=== PATIENT | female | born 2000 | race Two or more races ===

== ENCOUNTER 2025-04-21 07:24 | Inpatient (IN) ==
[2025-04-21] MEDS ORDERED: OXYTOCIN 30 UNITS/NSS 30 UNITS/500 ML BAG IV PRN ×2 (08:47→22:12)
[2025-04-21] MEDS ORDERED: LIDOCAINE 1% LOCAL 20 ML VIAL INFIL PRN (08:47)
[2025-04-21] MEDS ORDERED: CALCIUM CARBONATE 500 MG CHEWABLE TAB PO PRN (08:47)
--- NOTE | 2025-04-21 08:55 | History & Physical Report ---
Date of Service April 21, 2025 Assessment & Plan (1) Class 3 obesity: Plan: IOL with folye/cytotec for cervical ripening (2) with 39 completed weeks gestation: Admission and Anticipated Discharge Date Admission Date: April 21, 2025 History of Present Illness Chief Complaint: induction of labor Primary Care Provider: Vannessa Marrero MD 24 F [id number] at 39 weeks admitted for IOL for class 3 obesity Allergies Allergy/AdvReac Type Severity Reaction Status Date / Time latex AdvReac Intermediate Rash Verified 04/21/25 07:56 Patient History Medical History Anemia Had iron infusion 03/2025 Obesity Bipolar 1 disorder Hepatitis C antibody positive With last . 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 Counselor and Psychiatrist in [place] in May 2025. No suicidal throughts. Surgical History No history of previous surgery Family History Mother Lee syndrome Depression Alcoholic Social History Smoking Status: Former smoker Tobacco Type: E-cigarettes / Vaping Second Hand Exposure: Yes (fiance smokes outside); Hx Alcohol Use: No Hx Substance Use: No Preferred Language: Maltese Communication Ability: Effective Electro Winning Operator Required: No Beliefs That Will Affect Care: None marital status: Single marital status details: Justus Aguilar Current Living Situation: Significant Other Current Living Situation Comment: Lives with Justus Rhoades with daughter and son current occupational status: unemployed current occupation: Homemaker Other Information That Helps Us Care for You: No Feels Safe at Home: Yes Diet: regular Assistive Devices: None and Glasses OB History x2 DRY MAN History neg Review of Systems All systems reviewed & are unremarkable except as noted in HPI & below Physical Exam Constitutional: WD/WN, vitals as above Eyes: PERRL, conjunctivae normal, anicteric sclerae Respiratory: normal respiratory effort Cardiovascular: Rate/Rhythm: regular rate Gastrointestinal (Abdomen): Inspection/Auscultation: abdomen normal to inspection Musculoskeletal: Extremities: extremities normal to inspection Skin: no rashes, warm and dry Neurologic: patellar DTR's 2+ bilat, sensation intact Psychiatric: A+Ox3, euthymic affect Genitourinary: no vaginal lesions, no adnexal mass Manual OB Exam: + cervical dilation (May placed transcervically with 40 ml. saline inserted into balloon) 1 cm, + cervical effacement 50% and + station high OB Exam Monitor Tracing: + external FHT monitor used, + external uterine monitor used, + category I and + normal FHT variability cervix posterior/firm Results & Data Vital Signs (Past 12 Hours) Vital Signs Temp Pulse Resp BP 04/21/25 07:56 36.8 C 92 H 20 119/86 04/21/25 07:45 92 H 119/86 Code Status & VTE Plan VTE Prophylaxis Plan VTE Prophylaxis will be ordered: No Monitoring External Monitor Cat 1
[2025-04-21 09:15] LABS: Hematocrit (blood only) 36.2 % (37.0-47.0); Hemoglobin 12.0 g/dL (12.0-16.0); Mean Corpuscular Hemoglobin 27.6 pg (25.0-34.0); Mean Corpuscular Volume 83.2 fL (80.0-100.0); Platelet Count 271 K/uL (130-400); RDW Standard Deviation 55.1 fL (36.4-46.3); Red Blood Count 4.35 M/uL (4.20-5.40); White Blood Count 9.80 K/ul (4.8-10.8)
[2025-04-21] MEDS: miSOPROStol 50 MCG TAB PO STA (09:29)
[2025-04-21] MEDS: BUTORPHANOL TARTRATE 1 MG/ML VIAL IV PRN (10:41)
[2025-04-21] MEDS: LACTATED RINGER'S 1,000 ML IV PRN (10:41)
--- NOTE | 2025-04-21 13:01 | Labor Progress Brief Note ---
Date of Service April 21, 2025 Assessment & Plan Admission and Anticipated Discharge Date Admission Date: April 21, 2025 Physical Exam Genitourinary: Manual OB Exam: + cervical dilation 3 cm, + cervical effacement 60% and + station high OB Exam Monitor Tracing: + external FHT monitor used, + external uterine monitor used, + category I and + normal FHT variability Results & Data Vital Signs (Past 12 Hours) Vital Signs Temp Pulse Resp BP 04/21/25 10:46 36.8 C 93 H 20 124/71 04/21/25 07:56 36.8 C 92 H 20 119/86 04/21/25 07:45 92 H 119/86
[2025-04-21] MEDS: OXYTOCIN 30 UNITS/NSS 30 UNITS/500 ML BAG IV PRN (13:44)
[2025-04-21] MEDS ORDERED: ONDANSETRON INJ 2 MG/ML 2 ML VIAL IV PRN (15:23)
[2025-04-21] MEDS ORDERED: BUPIVACAINE 0.25% PF 30 ML VIAL EPI PRN (15:23)
[2025-04-21] MEDS ORDERED: PROMETHAZINE 6.25 MG/50.25 ML BAG IV PRN (15:23)
[2025-04-21] MEDS ORDERED: SODIUM CHLORIDE 0.9% PF INJ 10 ML VIAL EPI PRN (15:23)
[2025-04-21] MEDS ORDERED: NALBUPHINE HCL INJ 10 MG/ML AMP IV PRN (15:23)
[2025-04-21] MEDS ORDERED: ROPIVACAINE 0.5% PF 5 MG/ML 20 ML VIAL EPI PRN (15:23)
[2025-04-21] MEDS ORDERED: NALOXONE HCL 1 MG in SODIUM CHLORIDE 0.9% 1,000 ML IV PRN (15:23)
[2025-04-21] MEDS ORDERED: NALOXONE HCL 0.4 MG/1 ML VIAL/CARP IV PRN (15:23)
[2025-04-21] MEDS ORDERED: LIDOCAINE 2% MPF LOCAL 5 ML VIAL EPI PRN (15:23)
--- NOTE | 2025-04-21 15:23 | Anesthesiology Consultation ---
Date of Service April 21, 2025 Assessment & Plan ASA ASA2 Proposed Anesthesia Anesthesia Type: Labor Epidural Risk / Benefits Reviewed With: PT / POA / Parent / Guardian, Accepts Plan and Informed Consent Obtained History Height/Weight Height: 5 ft Weight: 106.141 kg Allergies Allergy/AdvReac Type Severity Reaction Status Date / Time latex AdvReac Intermediate Rash Verified 04/21/25 07:56 Medications Active Medications Generic Name Dose Route Start Last Admin Trade Name Freq PRN Reason Stop Dose Admin Butorphanol Tartrate 1 mg 04/21/25 09:33 04/21/25 10:41 Butorphanol Tartrate 1 Mg/Ml Vial IV 05/21/25 09:32 1 mg Q2HWA PRN Administration Pain Lactated Ringer's 1,000 mls @ 125 mls/hr 04/21/25 08:47 04/21/25 10:41 Lr IV 04/23/25 08:46 125 mls/hr .Q8H PRN Administration L&D Protocol Protocol Oxytocin 30 units in 500 mls @ 3 mls/hr 04/21/25 11:33 04/21/25 14:59 Pitocin 30 Units/Nss IV 04/23/25 11:32 0.18 units/hr .Q24H PRN 3 mls/hr Labor Induction/Augmentation Titration Protocol 0.18 UNITS/HR Past Medical History Medical History Anemia Had iron infusion 03/2025 Obesity Bipolar 1 disorder Hepatitis C antibody positive With last . 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 Counselor and Psychiatrist in [place] in May 2025. No suicidal throughts. Exercise / Class Metabolic Activity II 4-5 Yardwork/Stairs/Walk up hill Past Family History Family History Mother Lee syndrome Depression Alcoholic Past Surgical History Surgical History No history of previous surgery Past Anesthesia History No Hx of Anesthesia Complications and No Family Hx of Anesthesia Complications History of PONV No Hx of PONV and No Hx of Motion Sickness Social History Smoking Status: Former smoker Hx Alcohol Use: No Hx Substance Use: No substance use type: does not use Review of Systems denies fever/cough/ colds/ chest pain/ SOB/ JANINE denies JANINE Physical Exam Vital Signs Last Vital Signs Temp 36.9 C 04/21/25 15:00 Pulse 88 04/21/25 15:00 Resp 18 04/21/25 15:00 BP 104/72 04/21/25 15:00 ENMT Mouth: no TMJ abnormality and no dentition abnormality Thyromental Distance: > or= 3.5 Finger Breadths Mallampati Class: II Neck neck extension not limited Respiratory normal respiratory effort; no respiratory distress Auscultation: lungs clear to auscultation bilaterally Cardiovascular Rate/Rhythm: regular rate and regular rhythm Neurologic moves all extremities Psychiatric Orientation: alert and oriented x 3 Testing Laboratory Results 04/21/25 08:58 Blood Type O Negative 04/21/25 08:58 Antibody Screen NEGATIVE 04/21/25 08:58
[2025-04-21] MEDS: fentANYL 2 MCG/ML BUPIVacaine 0.125%-NSS 100ML BAG ONE (16:03)
[2025-04-21] MEDS: LIDOCAINE 2%/EPINEPHRINE 1:200,000 20 ML PF ONE (16:07)
[2025-04-21] MEDS: BUPIVACAINE 0.25% PF 30 ML VIAL ONE (16:08)
--- NOTE | 2025-04-21 16:28 | Labor Progress Brief Note ---
Date of Service April 21, 2025 Assessment & Plan Admission and Anticipated Discharge Date Admission Date: April 21, 2025 Physical Exam Genitourinary: Manual OB Exam: + cervical dilation 3 cm and 4 cm, + cervical effacement 70%, + station -2 and + amniotic fluid clear OB Exam Monitor Tracing: + external FHT monitor used, + external uterine monitor used, + category I and + normal FHT variability AROM with Amni-hook clear fluid Results & Data Vital Signs (Past 12 Hours) Vital Signs Temp Pulse Resp BP Pulse Ox 04/21/25 16:24 99 H 98 04/21/25 16:20 90 18 115/61 04/21/25 16:19 98 H 97 04/21/25 16:18 93 H 113/64 04/21/25 16:16 96 H 113/64 04/21/25 16:15 20 04/21/25 16:15 20 04/21/25 16:14 99 H 112/62 96 04/21/25 16:12 84 112/63 04/21/25 16:10 20 04/21/25 16:10 84 20 112/57 L 04/21/25 16:09 88 97 04/21/25 16:08 102 H 119/64 04/21/25 16:06 84 20 123/75 04/21/25 16:04 104 H 96 04/21/25 16:03 92 H 133/80 04/21/25 15:59 95 H 96 04/21/25 15:54 91 H 99 04/21/25 15:00 36.9 C 88 18 104/72 04/21/25 14:53 88 104/72 04/21/25 14:22 89 119/73 04/21/25 13:34 88 18 117/70 04/21/25 10:46 36.8 C 93 H 20 124/71 04/21/25 07:56 36.8 C 92 H 20 119/86 04/21/25 07:45 92 H 119/86
[2025-04-21] MEDS: diphenhydrAMINE 50 MG/ML VIAL IV PRN (18:32)
[2025-04-21] MEDS: SODIUM CHLORIDE 0.9% PF INJ 10 ML VIAL EPI STA (18:35)
[2025-04-21] MEDS: SODIUM CHLORIDE 0.9% PF INJ 10 ML VIAL ONE (18:35)
[2025-04-21] MEDS: BUPIVACAINE 0.25% PF 30 ML VIAL EPI STA (18:35)
[2025-04-21] MEDS: LIDOCAINE 2%/EPINEPHRINE 1:200,000 20 ML PF EPI STA (18:35)
[2025-04-21] MEDS: ACETAMINOPHEN 325 MG TAB PO PRN (22:29)
[2025-04-21] MEDS: fentANYL 2 MCG/ML BUPIVacaine 0.125%-NSS 100ML BAG EPI PRN (23:03)
[2025-04-21] MEDS ORDERED: NURSING L&D Epidural Breakthrough Pain Update ONE (23:43)
--- NOTE | 2025-04-22 00:27 | Delivery Summary ---
Vaginal Delivery Summary Date of Service April 22, 2025 Vaginal Delivery Summary live female NAKUL over intact perineum with delayed cord clamping. Apgars 8/0 weight pemding. Cord blood obtained followed by spontaneous delivery of intact placenta. No tears. QBL 50 ml. Final sponge and instrument count are correct. Mom and baby stable.
[2025-04-22] MEDS ORDERED: HYDROCORTISONE ACETATE 25 MG SUPP PR PRN (01:28)
[2025-04-22] MEDS ORDERED: OXYTOCIN 30 UNITS/NSS 30 UNITS/500 ML BAG IV PRN (01:28)
[2025-04-22] MEDS ORDERED: BENZOCAINE 20% SPRY 85 APPLN/85 GM CAN EXT PRN (01:28)
[2025-04-22] MEDS: DIPHTHER/TETAN/PERTUS Vaccine (Tdap, Adol/Adult) 0.5mL IM ONE (03:18)
--- NOTE | 2025-04-22 07:47 | Anesthesia Procedure Note ---
Date of Service April 22, 2025 Anesthesia Post Epidural Note Vital Signs Vital Signs: Temp Pulse Resp BP Pulse Ox O2 Del Method 36.8 C 86 18 111/66 97 Room Air 04/22/25 03:00 04/22/25 03:00 04/22/25 03:00 04/22/25 03:00 04/22/25 03:00 04/22/25 03:00 Pain Intensity Perineal: Pain Intensity: 2 Notes Mental Status: alert / awake / arousable Nausea / Vomiting: adequately controlled Pain: adequately controlled Airway Patency, RR, SpO2: stable & adequate BP & HR: stable & adequate Hydration State: stable & adequate Neuraxial Anesthesia: was administered and sensory block is resolving Anesthetic Complications: no major complications apparent and Pt Satisfied with anesthetic care Epidural: Removed without complications and With tip intact
[2025-04-22] MEDS: PRENATAL VITAMIN 1 TAB PO SCH (08:06)
[2025-04-22] MEDS: FERROUS SULFATE 325 MG TAB PO SCH (08:06)
[2025-04-22] MEDS: ACETAMINOPHEN 325 MG TAB PO PRN (08:06)
[2025-04-22] MEDS: DOCUSATE SODIUM 100 MG CAP PO SCH (08:06)
--- NOTE | 2025-04-22 08:53 | Obstetrical Progress Note ---
Date of Service April 22, 2025 Assessment & Plan Admission and Anticipated Discharge Date Admission Date: April 21, 2025 Subjective Patient is seen and examined. She feels well, no complaints. Ambulating without dizziness Voiding without difficulty Tolerating regular diet with out N&V Bleeding is minimal No fever/ chills/ CP/ SOB/ N&V/ Leg pain Breast feeding without problems Vital Signs Height Weight Body Mass Index Blood Pressure Blood Pressure Position Temperature Temperature Source 5 ft 106.141 kg 45.7 111/66 Semi-fowlers 36.8 C Oral 04/21/25 15:23 04/21/25 15:23 04/21/25 07:56 04/22/25 03:00 04/22/25 03:00 04/22/25 03:00 04/22/25 03:00 Pulse Rate Respiratory Rate Pulse Oximetry 86 18 97 04/22/25 03:00 04/22/25 03:00 04/22/25 03:00 Lab Results 04/21/25 Range/Units 08:58 WBC 9.80 (4.8-10.8) K/ul RBC 4.35 (4.20-5.40) M/uL Hgb 12.0 (12.0-16.0) g/dL Hct 36.2 L (37.0-47.0) % MCV 83.2 (80.0-100.0) fL MCH 27.6 (25.0-34.0) pg MCHC 33.1 (32.0-36.0) g/dL RDW Std Deviation 55.1 H (36.4-46.3) fL RDW Coeff of Da 18.3 H (11.5-14.5) % Plt Count 271 (130-400) K/uL MPV 11.4 (9.4-12.4) fL Treponema pallidum Ab Negative (Negative) Blood Type O Negative Antibody Screen NEGATIVE PE: General: Alert, orientedx3, NAD Abd: soft, NT, fundus firm, below Umbilicus Perineum intact, Lochia rubra minimal Ext; NT, no edema AP: 24 yo s/p , ppd# 0 VSS Afebrile doing well Continue routine care All questions were answered Patient desires to be discharged when 24 hour is complete at [place] tonight Discussed when to call D/C home, f/u in office Results & Data Vital Signs (Past 12 Hours) Vital Signs Temp Pulse Pulse Resp BP BP Pulse Ox 04/22/25 03:00 36.8 C 86 18 111/66 97 04/22/25 02:17 102 H 103/57 L 04/22/25 02:15 36.9 C 18 04/22/25 02:03 97 H 95/50 L 04/22/25 01:47 97 H 110/65 04/22/25 01:45 36.9 C 18 04/22/25 01:32 100 H 102/55 L 04/22/25 01:18 101 H 102/51 L 04/22/25 01:15 36.8 C 18 04/22/25 01:03 102 H 110/59 L 04/22/25 01:00 18 04/22/25 00:47 106 H 117/59 L 04/22/25 00:45 36.8 C 18 04/22/25 00:32 101 H 125/62 04/22/25 00:30 18 04/22/25 00:17 110 H 111/70 04/22/25 00:15 36.9 C 18 04/22/25 00:14 114 H 97 04/22/25 00:09 128 H 98 04/22/25 00:04 119 H 97 04/21/25 23:59 112 H 100 04/21/25 23:54 91 H 97 04/21/25 23:49 101 H 98 04/21/25 23:46 91 H 100/56 L 04/21/25 23:44 92 H 98 04/21/25 23:39 92 H 97 04/21/25 23:34 95 04/21/25 23:34 93 H 04/21/25 23:34 88 103/56 L 04/21/25 23:29 88 100 04/21/25 23:24 101 H 97 04/21/25 23:19 99 H 98 04/21/25 23:16 96 H 118/66 04/21/25 23:14 89 99 04/21/25 23:12 91 H 87 L 04/21/25 23:09 84 97 04/21/25 23:04 102 H 95 04/21/25 23:01 100 H 109/59 L 04/21/25 23:00 18 04/21/25 23:00 36.6 C 18 04/21/25 22:59 105 H 96 04/21/25 22:54 104 H 95 04/21/25 22:49 107 H 98 04/21/25 22:47 107 H 115/65 04/21/25 22:44 101 H 98 04/21/25 22:39 93 H 98 04/21/25 22:34 98 H 98 04/21/25 22:31 100 H 114/62 04/21/25 22:29 83 96 04/21/25 22:24 101 H 98 04/21/25 22:19 94 H 99 04/21/25 22:17 106 H 114/64 04/21/25 22:14 104 H 97 04/21/25 22:09 93 H 99 04/21/25 22:04 98 H 97 04/21/25 22:02 111 H 133/62 04/21/25 21:59 93 H 94 04/21/25 21:54 88 98 04/21/25 21:49 82 98 04/21/25 21:46 112 H 129/95 04/21/25 21:44 96 H 98 04/21/25 21:39 93 H 96 04/21/25 21:34 94 H 94 04/21/25 21:29 91 H 99 04/21/25 21:24 77 96 04/21/25 21:19 103 H 98 04/21/25 21:16 96 H 103/58 L 04/21/25 21:14 90 96 04/21/25 21:09 88 97 04/21/25 21:04 92 H 97 04/21/25 21:02 74 106/54 L 04/21/25 21:00 18 04/21/25 21:00 36.7 C 18 04/21/25 20:59 99 H 99 04/21/25 20:54 79 98 O2 Del Method 04/22/25 03:00 Room Air 04/22/25 02:17 04/22/25 02:15 04/22/25 02:03 04/22/25 01:47 04/22/25 01:45 04/22/25 01:32 04/22/25 01:18 04/22/25 01:15 04/22/25 01:03 04/22/25 01:00 04/22/25 00:47 04/22/25 00:45 04/22/25 00:32 04/22/25 00:30 04/22/25 00:17 04/22/25 00:15 04/22/25 00:14 04/22/25 00:09 04/22/25 00:04 04/21/25 23:59 04/21/25 23:54 04/21/25 23:49 04/21/25 23:46 04/21/25 23:44 04/21/25 23:39 04/21/25 23:34 04/21/25 23:34 04/21/25 23:34 04/21/25 23:29 04/21/25 23:24 04/21/25 23:19 04/21/25 23:16 04/21/25 23:14 04/21/25 23:12 04/21/25 23:09 04/21/25 23:04 04/21/25 23:01 04/21/25 23:00 04/21/25 23:00 04/21/25 22:59 04/21/25 22:54 04/21/25 22:49 04/21/25 22:47 04/21/25 22:44 04/21/25 22:39 04/21/25 22:34 04/21/25 22:31 04/21/25 22:29 04/21/25 22:24 04/21/25 22:19 04/21/25 22:17 04/21/25 22:14 04/21/25 22:09 04/21/25 22:04 04/21/25 22:02 04/21/25 21:59 04/21/25 21:54 04/21/25 21:49 04/21/25 21:46 04/21/25 21:44 04/21/25 21:39 04/21/25 21:34 04/21/25 21:29 04/21/25 21:24 04/21/25 21:19 04/21/25 21:16 04/21/25 21:14 04/21/25 21:09 04/21/25 21:04 04/21/25 21:02 04/21/25 21:00 04/21/25 21:00 04/21/25 20:59 04/21/25 20:54
[2025-04-22] MEDS: IBUPROFEN 600 MG TAB PO PRN (15:58)
[2025-04-22 16:31] LABS: Hematocrit (blood only) 36.3 % (37.0-47.0); Hemoglobin 12.0 g/dL (12.0-16.0); Immature Granulocytes # (auto) 0.04 K/uL (0.01-0.20); Immature Granulocytes % (auto) 0.4 %; Mean Corpuscular Hemoglobin 27.4 pg (25.0-34.0); Mean Corpuscular Volume 82.9 fL (80.0-100.0); Platelet Count 260 K/uL (130-400); RDW Standard Deviation 55.5 fL (36.4-46.3); Red Blood Count 4.38 M/uL (4.20-5.40); White Blood Count 10.54 K/ul (4.8-10.8)
[2025-04-23 01:03] VITALS: RESP 16
[2025-04-23 06:38] LABS: Hematocrit (blood only) 36.6 % (37.0-47.0); Hemoglobin 11.9 g/dL (12.0-16.0); Mean Corpuscular Hemoglobin 27.4 pg (25.0-34.0); Mean Corpuscular Volume 84.1 fL (80.0-100.0); Platelet Count 260 K/uL (130-400); RDW Standard Deviation 55.9 fL (36.4-46.3); Red Blood Count 4.35 M/uL (4.20-5.40); White Blood Count 10.92 K/ul (4.8-10.8)
--- NOTE | 2025-04-23 09:05 | Obstetrical Progress Note ---
Date of Service April 23, 2025 Assessment & Plan Admission and Anticipated Discharge Date Admission Date: April 21, 2025 Subjective abdomen soft and non tender passing gas no calf tenderness ambulating well vaginal bleeding scant hgb 11.9 Results & Data Vital Signs (Past 12 Hours) Vital Signs Pulse Resp BP Pulse Ox O2 Del Method 04/23/25 00:30 87 16 110/72 95 Room Air
[2025-04-23 09:43] VITALS: BP 105/63; PULSE 93; TEMP 97.2; O2SAT 97
== END 2025-04-23 09:35 | disposition home health service (06) | DRG 806 ==
LOC: 4S1 07:24 → 4E2 04-22 03:21